=== PATIENT | female | born 1960 | race Two or more races ===

== ENCOUNTER 2022-08-04 21:16 | Emergency (ER) | payer BC ==
[~2022-08-04] VITALS: Ht 157.5 cm; Wt 57.6 kg
[2022-08-04] MEDS ORDERED: PERCOCET 7.5-31 EACH (21:30)
[2022-08-04] MEDS ORDERED: PROAIR RESPICL90 MCG (21:30)
[2022-08-05] MEDS ORDERED: DICLOFENAC SODI75 MG PO (01:14)
[2022-08-05] MEDS ORDERED: NORFLEX100MG PO (01:14)
== END 2022-08-05 01:37 | disposition home or self-care (01) ==
LOC: ER 21:16
DX: M62.838 Other muscle spasm (principal); M25.551 Pain in right hip; M25.511 Pain in right shoulder; M54.89 Other dorsalgia